=== PATIENT | male | born 1980 | race Two or more races ===

== ENCOUNTER 2021-08-04 23:32 | Emergency (ER) | payer MEDICAID, OTHER ==
[~2021-08-04] VITALS: Ht 175.3 cm; Wt 97.5 kg
[2021-08-05] MEDS ORDERED: ONDANSETRON 4 MG TAB.RAPDIS ONE
[2021-08-05] MEDS ORDERED: HYDROCODONE/APAP 10/325MG TABLET PO ONE
[2021-08-05] MEDS ORDERED: ONDANSETRON 4 MG TAB.RAPDIS SL ONE
[2021-08-05] MEDS ORDERED: HYDROCODONE/APAP 10/325MG TABLET ONE
[2021-08-05] MEDS ORDERED: NEOM28OI32 TP (01:42)
[2021-08-05] MEDS ORDERED: BACI/NEOM/POLY B OINT PKT 1 UDPKT PACKET TP ONE (02:00)
[2021-08-05] MEDS ORDERED: BACI/NEOM/POLY B OINT PKT 1 UDPKT PACKET ONE (02:01)
--- NOTE | 2021-08-05 02:06 | NUR ---
Patient discharged to home in stable condition. Written and verbal after care instructions given. Patient verbalizes understanding of instruction. PT discharged in [employer] custody and ambulated out of ER with steady gait.
[2021-08-05 02:53] VITALS: BP 133/88
== END 2021-08-05 02:54 | disposition left against medical advice (07) ==
LOC: ER 23:34
DX: S60.512A Abrasion of left hand, initial encounter (principal); S60.511A Abrasion of right hand, initial encounter; M25.462 Effusion, left knee; Z98.890 Other specified postprocedural states; Z60.2 Problems related to living alone; W22.01XA Walked into wall, initial encounter; Y93.89 Activity, other specified; Y92.89 Other specified places as the place of occurrence of the external cause; Y99.8 Other external cause status
CPT/HCPCS: 73130 ×2; 73564; 99284; Q0162